=== PATIENT | female | born 1980 ===

== ENCOUNTER 2016-07-07 15:51 | Emergency (ER) | payer MEDICAID ==
[2016-07-07] MEDS ORDERED: SYNTHROID300 MCG PO (16:23)
[2016-07-07 19:00] VITALS: BP 148/79
== END 2016-07-07 18:55 | disposition home or self-care (01) ==
LOC: ED 15:51
DX: R53.83 Other fatigue (principal); R40.0 Somnolence
CPT/HCPCS: A4565